=== PATIENT | female | born 1960 | race Caucasian/White ===

== ENCOUNTER 2019-03-15 09:58 | Emergency (ER) | payer OTHER ==
[~2019-03-15] VITALS: Ht 162.6 cm; Wt 60.0 kg
[2019-03-15] MEDS ORDERED: LORAZEPAM 2MG/ML CPJ IV ONE ×2 (10:45→11:00)
[2019-03-15] MEDS ORDERED: KETOROLAC 30MG/ML VIAL IV ONE (10:45)
[2019-03-15 10:50] LABS: BASOPHILS % 0.7 % (0.0-2.0); EOSINOPHILS % 0.7 % (0.0-5.0); HEMATOCRIT. 47.6 % (36.0-48.0); HEMOGLOBIN. 16.2 g/dL (12.0-16.0); LYMPHOCYTES % 24.6 % (20.0-50.0); MEAN CORPUSCULAR HEMOGLOBIN 32.5 pg (28.0-32.0); MEAN CORPUSCULAR VOLUME 95.2 fL (81.0-99.0); PLATELET 181 x1000/uL (130-400); RED CELL DISTRIBUTION WIDTH 12.3 % (11.6-14.6)
[2019-03-15 10:56] LABS: CHLORIDE 107 mEq/L (98-107)
[2019-03-15 14:04] VITALS: BP 138/72
== END 2019-03-15 14:06 | disposition home or self-care (01) ==
LOC: ER 09:58 → CANBEDREQ 14:00 → ER 14:06
DX: R07.89 Other chest pain (principal)
CPT/HCPCS: 36415; 71045; 80053; 83880; 84484; 85025; 93005; 96374; 96375; 99284; J1885; J2060; Z7610